=== PATIENT | female | born 1960 | race Caucasian/White ===

== ENCOUNTER → 2016-11-17 | Outpatient (CLI) | payer BC ==
[~2016-11-17] MED LIST: BUSPAR5 MG PO; EFFE25TA; EFFEXOR XR75 MG/CAP PO; PROVENTIL0.09 MG/A1 IH; TOPROL XL 50MG50 MG PO; TOPROL XL25 MG PO
== END ==
LOC: COL.RAD 09:16
DX: S42.214D Unspecified nondisplaced fracture of surgical neck of right humerus, subsequent encounter for fracture with routine healing (principal); X58.XXXD Exposure to other specified factors, subsequent encounter

== ENCOUNTER 2016-11-18 13:00 | Observation (INO) | payer BC ==
[2016-11-18] VITALS (7 sets, daily range): BP systolic 112–132; BP diastolic 63–84; PULSE 59–91; TEMP 98.2–98.5
[~2016-11-18] VITALS: Ht 162.6 cm; Wt 62.3 kg
[~2016-11-18 13:00] MED LIST changes: -BUSPAR5 MG PO; -EFFE25TA; -EFFEXOR XR75 MG/CAP PO; -PROVENTIL0.09 MG/A1 IH; -TOPROL XL 50MG50 MG PO
[2016-11-18] MEDS ORDERED: BUSPAR5 MG PO (14:05)
[2016-11-18] MEDS ORDERED: TOPROL XL 50MG50 MG PO (14:05)
[2016-11-18] MEDS ORDERED: EFFE25TA (14:06)
[2016-11-18] MEDS ORDERED: PROVENTIL0.09 MG/A1 IH (14:07)
[2016-11-19 03:14] VITALS: BP 120/65; PULSE 59; TEMP 98.5
[2016-11-19] MEDS ORDERED: EFFEXOR XR75 MG/CAP PO (06:05)
[2016-11-19 09:42] VITALS: BP 113/60; PULSE 102; TEMP 98.3
[2016-11-19 13:57] VITALS: BP 124/47; PULSE 92; TEMP 98.4
== END 2016-11-19 15:00 | disposition home or self-care (01) ==
LOC: SDCO 13:00 → SURG 17:40 → SDCO 18:40 → SURG 11-19 10:06 → SDCO 11-19 15:00 → SURG 11-19 15:00
DX: S42.221A 2-part displaced fracture of surgical neck of right humerus, initial encounter for closed fracture (principal); W00.0XXA Fall on same level due to ice and snow, initial encounter
CPT/HCPCS: OP; C1713; G0378; J0690; J1170; J7120

== ENCOUNTER 2016-12-18 21:36 | Emergency (ER) | payer BC ==
[~2016-12-18] VITALS: Ht 157.5 cm; Wt 59.5 kg
[~2016-12-18 21:36] MED LIST changes: +BUSPAR5 MG PO; +EFFE25TA; +EFFEXOR XR75 MG/CAP PO; +PROVENTIL0.09 MG/A1 IH; +TOPROL XL 50MG50 MG PO
[2016-12-18 21:42] VITALS: BP 145/81; PULSE 91; TEMP 98.5
[2016-12-18 22:25] LABS: BASO % 0.6 % (0.0-2.0); EOS # 0.2 (0.0-0.7); GRAN # 2.9 (1.4-6.5); HEMATOCRIT 42.7 % (37.0-47.0); HEMOGLOBIN 13.9 g/dl (12.5-16.0); LYMPH # 3.4 (1.2-3.4); LYMPH % 48.8 % (20.0-51.0); MEAN CELL VOLUME 99 fl (80.0-100.0); MEAN CORPUSCULAR HEMOGLOBIN 32 pg (27.0-31.0); MEAN CORPUSCULAR HGB CONC 33 g/dl (33.0-37.0); MEAN PLATELET VOLUME 9.8 fl (7.4-10.4); MONO # 0.4 (0.1-0.6); MONO % 5.3 % (1.7-9.3); PLATELET COUNT 332 K/mm3 (130-400); REDCELL DISTRIBUTION WIDTH-CV 13.3 % (11.5-14.5); WHITE BLOOD COUNT 6.9 K/mm3 (4.8-10.8)
[2016-12-18 22:31] LABS: INR 0.9 (0.8-3.0); PROTHROMBIN TIME 9.9 SECONDS (9.7-12.8)
[2016-12-18 22:35] LABS: ALANINE AMINOTRANSFERASE 28 U/L (9-52); ALBUMIN 4.3 gm/dL (3.5-5.0); ALKALINE PHOSPHATASE 113 U/L (50-136); ANION GAP 12 mmol/L (7-16); BILIRUBIN,TOTAL 0.4 mg/dL (0.0-1.0); BLOOD UREA NITROGEN 11 mg/dL (7-17); CALCIUM 9.2 mg/dL (8.4-10.2); CARBON DIOXIDE 24 mmol/L (22-30); CHLORIDE 107 mmol/L (98-107); CREATININE, serum 0.91 mg/dL (0.52-1.25); GLUCOSE 96 mg/dL (74-106); POTASSIUM 4.2 mmol/L (3.4-5.0); SODIUM 143 mmol/L (137-145); TOTAL PROTEIN 7.3 gm/dL (6.4-8.2)
[2016-12-18 22:36] LABS: ACETAMINOPHEN < 10 ug/mL (10-30); SALICYLATE < 1.0 mg/dL
[2016-12-19 00:56] LABS: PH 5 (5-8); URINE APPEARANCE Clear; URINE BACTERIA Rare /hpf; URINE BILIRUBIN Negative (NEGATIVE); URINE BLOOD Negative (NEGATIVE); URINE COLOR Yellow; URINE GLUCOSE Negative (NEGATIVE); URINE KETONE Negative (NEGATIVE); URINE RBC 0-2 /hpf; URINE UROBILINOGEN Negative (NEGATIVE); URINE WBC 0-2 /hpf
[2016-12-19 01:01] LABS: AMPHETAMINE URINE NEGATIVE; BARBITURATES URINE NEGATIVE; BENZODIAZEPINES URINE NEGATIVE; BUPRENORPHINE URINE NEGATIVE; METHADONE URINE NEGATIVE; OPIATES URINE NEGATIVE; OXYCODONE URINE NEGATIVE; PHENCYCLIDINE URINE NEGATIVE; PROPOXYPHENE URINE NEGATIVE; THC CANNABINOIDS URINE NEGATIVE
== END 2016-12-19 02:52 | disposition home or self-care (01) ==
LOC: COL.ER 21:36
PROVIDERS: Emergency Medicine
DX: F55.8 Abuse of other non-psychoactive substances (principal); I10 Essential (primary) hypertension; Z87.891 Personal history of nicotine dependence

== ENCOUNTER → 2017-03-22 | Outpatient (CLI) | payer BC | LOC: COL.VAS 13:06 | DX: R06.02 Shortness of breath (principal); R01.1 Cardiac murmur, unspecified ==